=== PATIENT | female | born 1955 | race Caucasian/White ===

== ENCOUNTER → 2018-08-08 | Outpatient (CLI) | payer MEDICARE, MEDICAID ==
--- NOTE | 2018-08-08 11:17 | Diagnostic Imaging Report ---
PROCEDURE: CT sinuses without contrast TECHNIQUE: Multiple contiguous axial images were obtained through the sinuses without the use of intravenous contrast. Coronal and sagittal reformations were then performed. INDICATION: Right facial swelling and pain. There is slight leftward bowing of the nasal septum. There is mild right stephanie bullosa. Small amount of mural thickening is seen within the floor of the right maxillary antrum. The ostiomeatal units are patent. No paranasal sinus air-fluid level is identified. 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 There is material present within the right external auditory canal of uncertain etiology. There is no evidence of significant edema, inflammation or fluid collection. Note is made asymmetrically prominent left styloid process. IMPRESSION: Mild chronic right maxillary sinusitis. Right external auditory canal filling defect could be visually inspected. Otherwise, no acute abnormalities identified. Dictated by: Dictated on workstation # [id number]
== END ==
LOC: RAD FS 10:46
PROVIDERS: ATTEND Nurse Practitioner Family
DX: J32.0 Chronic maxillary sinusitis (principal); K08.89 Other specified disorders of teeth and supporting structures
CPT/HCPCS: 70486